=== PATIENT | male | born 1950 | race Caucasian/White ===

== ENCOUNTER → 2021-11-02 | Outpatient (CLI) | payer MEDICARE, BC | LOC: M WUC 12:59 | PROVIDERS: ATTEND Physician Assistant | DX: M54.17 Radiculopathy, lumbosacral region (principal); M51.9 Unspecified thoracic, thoracolumbar and lumbosacral intervertebral disc disorder ==

== ENCOUNTER → 2021-11-06 | Outpatient (CLI) | payer MEDICARE, BC ==
[2021-11-06 14:19] LABS: BLOOD UREA NITROGEN 14 MG/DL (7-18); CALCIUM LEVEL 8.9 MG/DL (8.8-10.2); CARBON DIOXIDE LEVEL 30 MEQ/L (21-32); CHLORIDE LEVEL 104 MEQ/L (98-107); CREATININE FOR GFR 0.98 MG/DL (0.70-1.30); GLOMERULAR FILTRATION RATE > 60.0 (>42); GLUCOSE, FASTING 127 MG/DL (70-100); POTASSIUM SERUM 3.5 MEQ/L (3.5-5.1); SODIUM LEVEL 139 MEQ/L (136-145)
== END ==
LOC: M WUC 09:43
PROVIDERS: ATTEND Physician Assistant
DX: M54.17 Radiculopathy, lumbosacral region (principal)

== ENCOUNTER → 2021-11-07 | Outpatient (CLI) | payer MEDICARE, BC ==
[~2021-11-07] MED LIST: PROHANCE 279.3MG/ML 15ML VIAL ONE
== END ==
LOC: M PLAIMG 08:07
PROVIDERS: ATTEND Physician Assistant
DX: M51.16 Intervertebral disc disorders with radiculopathy, lumbar region (principal)
CPT/HCPCS: 72158; A9576